=== PATIENT | female | born 1950 | race Hispanic/Latino ===

== ENCOUNTER 2021-04-06 16:51 | Emergency (ER) | payer MEDICARE ==
[~2021-04-06] VITALS: Ht 167.6 cm; Wt 66.7 kg
[2021-04-06 18:00] LABS: CLARITY,URINE SL CLOUDY (CLEAR); COLOR,URINE AMBER (YELLOW); KETONES,URINE 1+ (NEGATIVE); LEUKOCYTE ESTERASE ,URINE NEGATIVE (NEGATIVE); NITRITE,URINE NEGATIVE (NEGATIVE); PROTEIN,URINE DIPSTICK 1+ (NEGATIVE); URINE UROBILINOGEN 4 mg/dL (0.2 - 1)
[2021-04-06] MEDS ORDERED: ACETAMINOPHEN 325 MG TAB PO ONE (18:00)
[2021-04-06 18:12] LABS: BACTERIA,URINE MODERATE /HPF; EPITHELIAL CELLS,URINE MODERATE /LPF
[2021-04-06 18:13] LABS: AMORPHOUS SEDIMENT,URINE MODERATE (FEW)
[2021-04-06] MEDS ORDERED: SODIUM CHLORIDE 0.9% 1000ML 1,000 ML IV ONE (18:15)
[2021-04-06 18:19] LABS: BASOPHILS % 0.4 % (0.0-1.0); HEMATOCRIT 39.6 % (34.2-44.1); HEMOGLOBIN 13.4 g/dL (12.0-16.0); LYMPHOCYTES # (AUTO) 0.6 (1.0-3.2); LYMPHOCYTES % 21.9 % (18.0-39.1); MEAN CORPUSCULAR HEMOGLOBIN 30.2 pg (28-32); MEAN CORPUSCULAR HGB CONC 33.8 g/dL (31-35); MEAN CORPUSCULAR VOLUME 89.2 fL (81-99); MONOCYTES # (AUTO) 0.3 (0.2-0.8); MONOCYTES % 11.5 % (4.4-11.3); NEUTROPHILS # (AUTO) 1.8 (2.1-6.9); NEUTROPHILS % 65.8 % (38.7-80.0); PLATELET COUNT 115 x10e3/uL (140-360); RED BLOOD COUNT 4.44 x10e6/uL (3.6-5.1); RED CELL DISTRIBUTION WIDTH 11.6 % (11.7-14.4)
[2021-04-06] MEDS ORDERED: SODIUM CHLORIDE 0.9% 1000ML 1,000 ML ONE (18:20)
[2021-04-06 18:39] LABS: ALBUMIN 4.1 g/dL (3.5-5.0); ANION GAP 15.7 mmol/L (8-16); CALCIUM 9.6 mg/dL (8.4-10.2); CREATININE, SERUM 0.88 mg/dL (0.57-1.11); POTASSIUM 3.7 mmol/L (3.5-5.1)
[2021-04-06] MEDS ORDERED: IBUPROFEN 600 MG TAB PO STA (19:09)
[2021-04-06] MEDS ORDERED: CEFTRIAXONE 1 GM in SODIUM CHLORIDE 0.9% 50ML 50 ML IV ONE (19:15)
[2021-04-06 20:27] LABS: LYMPHOCYTES % (MANUAL) 17 % (19-48); MONOCYTES % (MANUAL) 10 % (3.4-9.0); NEUTROPHILS % (MANUAL) 68 % (40-74); PLATELET ESTIMATE SLIGHTLY DECREASED; PLATELET MORPHOLOGY COMMENT NORMAL; RBC MORPHOLOGY COMMENT NORMAL
[2021-04-06] MEDS ORDERED: SODIUM CHLORIDE 0.9% 50ML 50 ML ONE (20:44)
[2021-04-06] MEDS ORDERED: IOPAMIDOL 370 MG/ML 200 ML INFUS..BTL INJ ONE (20:44)
== END 2021-04-06 23:00 | disposition home or self-care (01) ==
LOC: ER 19:30
DX: R50.9 Fever, unspecified (principal); R10.32 Left lower quadrant pain; N39.0 Urinary tract infection, site not specified; R91.1 Solitary pulmonary nodule
CPT/HCPCS: 36415; 71045; 74177; 80053; 81001; 83605; 85025; 87040; 87086; 99284; J0696; J7030; Q9967

== ENCOUNTER 2021-04-11 21:40 | Inpatient (IN) | payer MEDICARE ==
[~2021-04-11] VITALS: Ht 167.6 cm; Wt 68.5 kg
[2021-04-11] MEDS ORDERED: SODIUM CHLORIDE 0.9% 1000ML 1,000 ML IV STA ×2 (22:38)
[2021-04-11] MEDS ORDERED: CEFEPIME 1 GM in SODIUM CHLORIDE 0.9% 50ML 50 ML IV ONE (22:45)
[2021-04-11] MEDS ORDERED: SODIUM CHLORIDE 0.9% 1000ML 2,000 ML ONE (22:52)
[2021-04-11 23:08] LABS: BASOPHILS % 0.5 % (0.0-1.0); EOSINOPHILS % 0.1 % (0.0-6.0); HEMATOCRIT 35.1 % (34.2-44.1); HEMOGLOBIN 12.1 g/dL (12.0-16.0); LYMPHOCYTES # (AUTO) 0.6 (1.0-3.2); LYMPHOCYTES % 7.6 % (18.0-39.1); MEAN CORPUSCULAR HEMOGLOBIN 30.2 pg (28-32); MEAN CORPUSCULAR HGB CONC 34.5 g/dL (31-35); MEAN CORPUSCULAR VOLUME 87.5 fL (81-99); MONOCYTES # (AUTO) 0.3 (0.2-0.8); MONOCYTES % 3.3 % (4.4-11.3); NEUTROPHILS # (AUTO) 6.6 (2.1-6.9); NEUTROPHILS % 87.6 % (38.7-80.0); RED BLOOD COUNT 4.01 x10e6/uL (3.6-5.1); RED CELL DISTRIBUTION WIDTH 12.4 % (11.7-14.4)
[2021-04-11 23:19] LABS: PLATELET COUNT 45 x10e3/uL (140-360)
[2021-04-11 23:21] LABS: ALBUMIN 2.7 g/dL (3.5-5.0); ALBUMIN/GLOBULIN RATIO 0.7 (0.8-2.0); ANION GAP 19.7 mmol/L (8-16); CALCIUM 8.3 mg/dL (8.4-10.2); CREATININE, SERUM 1.98 mg/dL (0.57-1.11); POTASSIUM 3.7 mmol/L (3.5-5.1)
[2021-04-12] VITALS (17 sets, daily range): BP systolic 87–105; BP diastolic 37–63
[2021-04-12 01:08] LABS: CLARITY,URINE CLOUDY (CLEAR); COLOR,URINE ORANGE (YELLOW); KETONES,URINE NEGATIVE (NEGATIVE); LEUKOCYTE ESTERASE ,URINE NEGATIVE (NEGATIVE); NITRITE,URINE NEGATIVE (NEGATIVE); PROTEIN,URINE DIPSTICK 1+ (NEGATIVE); URINE UROBILINOGEN 0.2 mg/dL (0.2 - 1)
[2021-04-12 01:09] LABS: CREATINE KINASE MB 1.8 ng/mL (0-5.0)
[2021-04-12 01:16] LABS: BACTERIA,URINE MANY /HPF; EPITHELIAL CELLS,URINE FEW /LPF; WBC,URINE (MAN) 21-50 /HPF (0-5)
[2021-04-12 01:17] LABS: AMORPHOUS SEDIMENT,URINE MODERATE (FEW); MUCUS,URINE FEW (RARE)
[2021-04-12] MEDS: SODIUM CHLORIDE 0.9% 1000ML 1,000 ML IV SCH ×3 (02:15→12:03)
[2021-04-12] MEDS ORDERED: NOREPINEPHRINE 8 MG/D5W 250 ML 250 ML ONE (02:23)
[2021-04-12] MEDS: NOREPINEPHRINE 8 MG/D5W 250 ML 250 ML IV SCH (02:30)
[2021-04-12] MEDS ORDERED: ONDANSETRON HCL INJ 2MG/ML 2ML 2 MG/ML VIAL IV STA (03:20)
[2021-04-12] MEDS ORDERED: MORPHINE SULFATE INJ 2 MG/ML SYR IV STA (03:20)
[2021-04-12] MEDS ORDERED: FENTANYL CITRATE/PF 100MCG/2 ML INJ ONE (04:13)
[2021-04-12] MEDS ORDERED: FENTANYL CITRATE/PF 100MCG/2 ML INJ IV ONE (04:15)
[2021-04-12] MEDS ORDERED: PIPERACILLIN/TAZOBACTAM 3.375 GM in SODIUM CHLORIDE 0.9% 50ML 50 ML IV SCH (06:00)
[2021-04-12] MEDS ORDERED: LIDOCAINE 4% PATCH TP PRN (07:00)
[2021-04-12] MEDS ORDERED: DOCUSATE SODIUM 100 MG CAP PO PRN (07:00)
[2021-04-12] MEDS ORDERED: POTASSIUM CHLORIDE 20 MEQ TAB CR PO PRN (07:00)
[2021-04-12] MEDS ORDERED: ALBUTEROL/IPRATROPIUM 3 ML NEB NEB PRN (07:00)
[2021-04-12] MEDS ORDERED: DIPHENHYDRAMINE HCL 25 MG CAP PO PRN (07:00)
[2021-04-12] MEDS ORDERED: ONDANSETRON HCL INJ 2MG/ML 2ML 2 MG/ML VIAL IV PRN (07:00)
[2021-04-12] MEDS ORDERED: DEXTROSE 50% SYRINGE 50 ML IV PRN (07:00)
[2021-04-12] MEDS: MEROPENEM 500 MG in SODIUM CHLORIDE 0.9% 50ML 50 ML IV SCH ×3 (07:29→19:48)
[2021-04-12] MEDS: PANTOPRAZOLE SOD 40 MG TABEC PO SCH (07:29)
[2021-04-12] MEDS ORDERED: SODIUM CHLORIDE 0.9% 1000ML 1,000 ML IV SCH ×2 (09:45→10:45)
[2021-04-12 09:52] LABS: CREATINE KINASE MB 2.1 ng/mL (0-5.0)
[2021-04-12 10:36] LABS: ANION GAP 13.2 mmol/L (8-16); CALCIUM 7.1 mg/dL (8.4-10.2); CREATININE, SERUM 1.36 mg/dL (0.57-1.11); POTASSIUM 3.2 mmol/L (3.5-5.1)
[2021-04-12] MEDS: SODIUM BICARBONATE 650 MG TAB PO SCH ×2 (11:32→16:08)
[2021-04-12] MEDS ORDERED: POTASSIUM CHLORIDE 20MEQ/100ML 200 ML IV ONE (12:30)
[2021-04-12] MEDS: SODIUM BICARBONATE 8.4% SYRING 150 ML in DEXTROSE 5% 1,000 ML IV SCH (13:17)
[2021-04-12 13:34] LABS: INR 0.98; PROTHROMBIN TIME 13.6 seconds (11.9-14.5)
[2021-04-12 13:35] LABS: PARTIAL THROMBOPLASTIN TIME 45.1 seconds (23.8-35.5)
[2021-04-12 13:36] LABS: BACTERIA,URINE RARE /HPF; CLARITY,URINE CLEAR (CLEAR); COLOR,URINE YELLOW (YELLOW); KETONES,URINE NEGATIVE (NEGATIVE); LEUKOCYTE ESTERASE ,URINE NEGATIVE (NEGATIVE); MUCUS,URINE FEW (RARE); NITRITE,URINE NEGATIVE (NEGATIVE); PROTEIN,URINE DIPSTICK TRACE (NEGATIVE); RBC,URINE 0-5 /HPF (0-5); URINE UROBILINOGEN 0.2 mg/dL (0.2 - 1); WBC,URINE (MAN) 0-5 /HPF (0-5)
[2021-04-12 16:35] LABS: CREATINE KINASE MB 1.3 ng/mL (0-5.0)
[2021-04-12] MEDS ORDERED: ENOXAPARIN SOD INJ 40 MG/0.4 ML SYR SC SCH (17:00)
[2021-04-12] MEDS: ACETAMINOPHEN 325 MG TAB PO PRN (19:27)
[2021-04-12 21:24] LABS: CREATINE KINASE MB 0.7 ng/mL (0-5.0)
[2021-04-13] VITALS (24 sets, daily range): BP systolic 52–161; BP diastolic 35–71
[2021-04-13] MEDS: MEROPENEM 500 MG in SODIUM CHLORIDE 0.9% 50ML 50 ML IV SCH ×4 (02:13→20:14)
[2021-04-13] MEDS: NOREPINEPHRINE 8 MG/D5W 250 ML 250 ML IV SCH ×2 (02:55→23:00)
[2021-04-13] MEDS: SODIUM BICARBONATE 8.4% SYRING 150 ML in DEXTROSE 5% 1,000 ML IV SCH ×2 (02:56→23:39)
[2021-04-13 06:31] LABS: BASOPHILS % 0.3 % (0.0-1.0); EOSINOPHILS % 0.2 % (0.0-6.0); HEMATOCRIT 29.6 % (34.2-44.1); HEMOGLOBIN 10.1 g/dL (12.0-16.0); LYMPHOCYTES % 10.3 % (18.0-39.1); MEAN CORPUSCULAR HEMOGLOBIN 29.8 pg (28-32); MEAN CORPUSCULAR HGB CONC 34.1 g/dL (31-35); MEAN CORPUSCULAR VOLUME 87.3 fL (81-99); MONOCYTES # (AUTO) 0.3 (0.2-0.8); MONOCYTES % 2.7 % (4.4-11.3); NEUTROPHILS # (AUTO) 8.6 (2.1-6.9); NEUTROPHILS % 84.7 % (38.7-80.0); RED BLOOD COUNT 3.39 x10e6/uL (3.6-5.1); RED CELL DISTRIBUTION WIDTH 12.7 % (11.7-14.4)
[2021-04-13 06:42] LABS: PLATELET COUNT 40 x10e3/uL (140-360)
[2021-04-13 07:01] LABS: ALBUMIN 1.7 g/dL (3.5-5.0); ALBUMIN/GLOBULIN RATIO 0.7 (0.8-2.0); ANION GAP 11.4 mmol/L (8-16); CREATININE, SERUM 0.95 mg/dL (0.57-1.11); POTASSIUM 3.4 mmol/L (3.5-5.1)
[2021-04-13 07:02] LABS: CALCIUM 6.8 mg/dL (8.4-10.2)
[2021-04-13 07:30] LABS: BAND NEUTROPHILS % (MANUAL) 4 %; LYMPHOCYTES % (MANUAL) 7 % (19-48); MONOCYTES % (MANUAL) 2 % (3.4-9.0); NEUTROPHILS % (MANUAL) 87 % (40-74); PLATELET ESTIMATE MARKEDLY DECREASED; PLATELET MORPHOLOGY COMMENT NORMAL
[2021-04-13 07:31] LABS: RBC MORPHOLOGY COMMENT NORMAL
[2021-04-13] MEDS: ACETAMINOPHEN 1000 MG/100 ML IV PRN ×2 (07:56→22:58)
[2021-04-13] MEDS: PANTOPRAZOLE SOD 40 MG TABEC PO SCH (07:59)
[2021-04-13] MEDS: SODIUM BICARBONATE 650 MG TAB PO SCH (08:03)
[2021-04-13] MEDS ORDERED: IBUPROFEN 600 MG TAB PO PRN (09:15)
[2021-04-13] MEDS ORDERED: POTASSIUM CHLORIDE 20MEQ/100ML 200 ML IV ONE (09:30)
[2021-04-13] MEDS: Vancomycin IV 1 GM in SODIUM CHLORIDE 0.9% 250ML 250 ML IV SCH ×2 (09:54→21:45)
[2021-04-13] MEDS ORDERED: FUROSEMIDE INJ 10 MG/ML 4 ML VIAL IV ONE (10:00)
[2021-04-13] MEDS ORDERED: CALCIUM GLUCONATE 10% INJ 9.3 MEQ in SODIUM CHLORIDE 0.9% 100 ML 100 ML IV ONE (11:00)
[2021-04-13] MEDS: IBUPROFEN 600 MG TAB PO PRN (15:44)
[2021-04-13] MEDS ORDERED: SODIUM CHLORIDE 0.9% 50ML 50 ML ONE (17:30)
[2021-04-13] MEDS ORDERED: IOPAMIDOL 370 MG/ML 200 ML INFUS..BTL INJ ONE (17:30)
[2021-04-13 20:18] LABS: BASOPHILS % 0.5 % (0.0-1.0); EOSINOPHILS % 0.3 % (0.0-6.0); HEMATOCRIT 32.4 % (34.2-44.1); LYMPHOCYTES # (AUTO) 0.9 (1.0-3.2); LYMPHOCYTES % 11.8 % (18.0-39.1); MEAN CORPUSCULAR HEMOGLOBIN 29.7 pg (28-32); MEAN CORPUSCULAR VOLUME 87.6 fL (81-99); MONOCYTES # (AUTO) 0.2 (0.2-0.8); MONOCYTES % 2.6 % (4.4-11.3); NEUTROPHILS # (AUTO) 6.4 (2.1-6.9); NEUTROPHILS % 83.4 % (38.7-80.0); RED CELL DISTRIBUTION WIDTH 12.9 % (11.7-14.4)
[2021-04-13 20:23] LABS: PLATELET COUNT 35 x10e3/uL (140-360)
[2021-04-13 20:42] LABS: ALBUMIN 1.7 g/dL (3.5-5.0); ALBUMIN/GLOBULIN RATIO 0.7 (0.8-2.0); ANION GAP 15.3 mmol/L (8-16); CALCIUM 7.3 mg/dL (8.4-10.2); CREATININE, SERUM 0.95 mg/dL (0.57-1.11); POTASSIUM 3.3 mmol/L (3.5-5.1)
[2021-04-13] MEDS ORDERED: SODIUM CHLORIDE 0.9% 500ML 500 ML IV ONE (22:15)
[2021-04-13] MEDS: VASOPRESSIN 60 UNIT in DEXTROSE 5% 50ML 57 ML IV PRN (23:05)
[2021-04-13] MEDS ORDERED: DEXTROSE 5% 100ML 100 ML IV ONE (23:09)
[2021-04-13] MEDS ORDERED: VASOPRESSIN INJ 20 UNIT/ML VIAL ONE (23:09)
[2021-04-13] MEDS: PHENYLEPHRINE 10MG/ML VIAL 40 MG in DEXTROSE 5% 250ML 246 ML IV PRN (23:55)
[2021-04-13] MEDS ORDERED: DEXTROSE 5% 250ML 250 ML IV ONE (23:56)
[2021-04-13] MEDS ORDERED: PHENYLEPHRINE HCL 1% 10 MG/ML VIAL ONE (23:58)
[2021-04-14] VITALS (26 sets, daily range): BP systolic 89–143; BP diastolic 55–98
[2021-04-14] MEDS: MEROPENEM 500 MG in SODIUM CHLORIDE 0.9% 50ML 50 ML IV SCH ×4 (02:05→20:05)
[2021-04-14] MEDS: NOREPINEPHRINE 8 MG/D5W 250 ML 250 ML IV SCH (02:30)
[2021-04-14] MEDS ORDERED: NITROFURANTOIN100 M1 PO (02:51)
[2021-04-14] MEDS ORDERED: ESCITALOPRAM OX10 MG PO (02:51)
[2021-04-14] MEDS ORDERED: TRAZODONE HCL50 MG PO (02:51)
[2021-04-14] MEDS ORDERED: HYDROXYZINE HCL10 MG PO ×2 (02:51→02:55)
[2021-04-14] MEDS ORDERED: DOXEPIN HCL10 MG PO (02:51)
[2021-04-14 05:07] LABS: BASOPHILS # (AUTO) 0.1 (0.0-0.1); BASOPHILS % 0.8 % (0.0-1.0); EOSINOPHILS % 0.2 % (0.0-6.0); HEMATOCRIT 34.3 % (34.2-44.1); HEMOGLOBIN 11.2 g/dL (12.0-16.0); LYMPHOCYTES # (AUTO) 1.4 (1.0-3.2); LYMPHOCYTES % 14.7 % (18.0-39.1); MEAN CORPUSCULAR HEMOGLOBIN 30.1 pg (28-32); MEAN CORPUSCULAR HGB CONC 32.7 g/dL (31-35); MEAN CORPUSCULAR VOLUME 92.2 fL (81-99); MONOCYTES # (AUTO) 0.4 (0.2-0.8); MONOCYTES % 3.9 % (4.4-11.3); NEUTROPHILS # (AUTO) 7.5 (2.1-6.9); NEUTROPHILS % 78.6 % (38.7-80.0); RED BLOOD COUNT 3.72 x10e6/uL (3.6-5.1); RED CELL DISTRIBUTION WIDTH 13.2 % (11.7-14.4)
[2021-04-14 05:19] LABS: PLATELET COUNT 41 x10e3/uL (140-360)
[2021-04-14 05:33] LABS: ALBUMIN 1.8 g/dL (3.5-5.0); ALBUMIN/GLOBULIN RATIO 0.6 (0.8-2.0); ANION GAP 15.1 mmol/L (8-16); CALCIUM 7.4 mg/dL (8.4-10.2); CREATININE, SERUM 0.78 mg/dL (0.57-1.11); POTASSIUM 4.1 mmol/L (3.5-5.1)
[2021-04-14] MEDS: PANTOPRAZOLE SOD 40 MG TABEC PO SCH (08:54)
[2021-04-14] MEDS: PHENYLEPHRINE 10MG/ML VIAL 40 MG in DEXTROSE 5% 250ML 246 ML IV PRN ×2 (09:05→17:22)
[2021-04-14] MEDS ORDERED: DIGOXIN INJ 0.25 MG/ML 2 ML AMP IV SCH (09:15)
[2021-04-14] MEDS: DIGOXIN INJ 0.25 MG/ML 2 ML AMP IV SCH ×2 (09:33→14:29)
[2021-04-14] MEDS: Vancomycin IV 1 GM in SODIUM CHLORIDE 0.9% 250ML 250 ML IV SCH (10:09)
[2021-04-14] MEDS: VASOPRESSIN 60 UNIT in DEXTROSE 5% 50ML 57 ML IV PRN ×2 (10:48→23:08)
[2021-04-14 11:55] LABS: OCCULT BLOOD STOOL NEGATIVE (NEGATIVE)
[2021-04-14 13:13] LABS: C DIFFICILE TOXIN A&B AMP PROB NEGATIVE (NEGATIVE)
[2021-04-14] MEDS ORDERED: DIGOXIN INJ 0.25 MG/ML 2 ML AMP ONE (14:33)
[2021-04-14] MEDS: VANCOMYCIN HCL 125 MG CAPSULE PO SCH (17:58)
[2021-04-14] MEDS: POTASSIUM CHLORIDE 20MEQ/100ML 100 ML IV SCH (22:12)
[2021-04-14] MEDS: SODIUM BICARBONATE 8.4% SYRING 150 ML in DEXTROSE 5% 1,000 ML IV SCH (22:27)
[2021-04-15] VITALS (26 sets, daily range): BP systolic 101–140; BP diastolic 56–92
[2021-04-15] MEDS: VANCOMYCIN HCL 125 MG CAPSULE PO SCH ×3 (00:30→12:17)
[2021-04-15] MEDS: POTASSIUM CHLORIDE 20MEQ/100ML 100 ML IV SCH (00:30)
[2021-04-15] MEDS: IBUPROFEN 600 MG TAB PO PRN (01:05)
[2021-04-15] MEDS: MEROPENEM 500 MG in SODIUM CHLORIDE 0.9% 50ML 50 ML IV SCH ×4 (02:10→19:59)
[2021-04-15] MEDS: PHENYLEPHRINE 10MG/ML VIAL 40 MG in DEXTROSE 5% 250ML 246 ML IV PRN ×2 (03:00→15:45)
[2021-04-15] MEDS: PANTOPRAZOLE SOD 40 MG TABEC PO SCH (08:45)
[2021-04-15] MEDS: ESCITALOPRAM OXALATE 10 MG TAB PO SCH (08:45)
[2021-04-15 14:13] LABS: BASOPHILS # (AUTO) 0.1 (0.0-0.1); BASOPHILS % 0.6 % (0.0-1.0); EOSINOPHILS % 0.2 % (0.0-6.0); HEMATOCRIT 30.2 % (34.2-44.1); HEMOGLOBIN 9.9 g/dL (12.0-16.0); LYMPHOCYTES # (AUTO) 3.2 (1.0-3.2); MEAN CORPUSCULAR HEMOGLOBIN 29.7 pg (28-32); MEAN CORPUSCULAR HGB CONC 32.8 g/dL (31-35); MEAN CORPUSCULAR VOLUME 90.7 fL (81-99); MONOCYTES # (AUTO) 0.6 (0.2-0.8); MONOCYTES % 4.9 % (4.4-11.3); NEUTROPHILS # (AUTO) 7.8 (2.1-6.9); NEUTROPHILS % 65.4 % (38.7-80.0); PLATELET COUNT 72 x10e3/uL (140-360); RED BLOOD COUNT 3.33 x10e6/uL (3.6-5.1); RED CELL DISTRIBUTION WIDTH 12.9 % (11.7-14.4)
[2021-04-15] MEDS: HYDROCORTISONE SOD SUCCINATE 100 MG VIAL IV SCH ×2 (14:13→22:17)
[2021-04-15] MEDS: VASOPRESSIN 60 UNIT in DEXTROSE 5% 50ML 57 ML IV PRN (14:35)
[2021-04-15 14:41] LABS: ANION GAP 13.5 mmol/L (8-16); CREATININE, SERUM 0.62 mg/dL (0.57-1.11); POTASSIUM 3.5 mmol/L (3.5-5.1)
[2021-04-15 14:59] LABS: CALCIUM 6.9 mg/dL (8.4-10.2)
[2021-04-15] MEDS ORDERED: TRAZODONE HCL 50 MG TAB PO PRN (15:45)
[2021-04-15 16:09] LABS: BAND NEUTROPHILS % (MANUAL) 7 %; LYMPHOCYTES % (MANUAL) 25 % (19-48); MONOCYTES % (MANUAL) 4 % (3.4-9.0); MYELOCYTES % (MANUAL) 1 % (0-0); NEUTROPHILS % (MANUAL) 62 % (40-74); RBC MORPHOLOGY COMMENT NORMAL
[2021-04-15 16:10] LABS: PLATELET ESTIMATE SLIGHTLY DECREASED; PLATELET MORPHOLOGY COMMENT NORMAL
[2021-04-15 21:33] LABS: ALBUMIN 1.8 g/dL (3.5-5.0); ALBUMIN/GLOBULIN RATIO 0.6 (0.8-2.0); ANION GAP 11.3 mmol/L (8-16); CREATININE, SERUM 0.68 mg/dL (0.57-1.11); POTASSIUM 3.3 mmol/L (3.5-5.1)
[2021-04-15 21:50] LABS: CALCIUM 6.9 mg/dL (8.4-10.2)
[2021-04-15] MEDS: SODIUM BICARBONATE 8.4% SYRING 150 ML in DEXTROSE 5% 1,000 ML IV SCH (22:00)
[2021-04-15] MEDS ORDERED: POTASSIUM CHLORIDE 20MEQ/100ML 100 ML IV ONE (22:45)
[2021-04-16] VITALS (26 sets, daily range): BP systolic 91–135; BP diastolic 54–85
[2021-04-16] MEDS: MEROPENEM 500 MG in SODIUM CHLORIDE 0.9% 50ML 50 ML IV SCH ×4 (02:01→20:17)
[2021-04-16] MEDS: VASOPRESSIN 60 UNIT in DEXTROSE 5% 50ML 57 ML IV PRN ×3 (02:53→17:20)
[2021-04-16] MEDS: HYDROCORTISONE SOD SUCCINATE 100 MG VIAL IV SCH (05:55)
[2021-04-16 06:08] LABS: BASOPHILS % 0.3 % (0.0-1.0); HEMATOCRIT 25.8 % (34.2-44.1); HEMOGLOBIN 8.6 g/dL (12.0-16.0); LYMPHOCYTES # (AUTO) 3.1 (1.0-3.2); LYMPHOCYTES % 31.6 % (18.0-39.1); MEAN CORPUSCULAR HGB CONC 33.3 g/dL (31-35); MEAN CORPUSCULAR VOLUME 89.9 fL (81-99); MONOCYTES # (AUTO) 0.5 (0.2-0.8); MONOCYTES % 5.3 % (4.4-11.3); NEUTROPHILS # (AUTO) 5.8 (2.1-6.9); NEUTROPHILS % 59.6 % (38.7-80.0); PLATELET COUNT 86 x10e3/uL (140-360); RED BLOOD COUNT 2.87 x10e6/uL (3.6-5.1); RED CELL DISTRIBUTION WIDTH 12.8 % (11.7-14.4)
[2021-04-16] MEDS: PANTOPRAZOLE SOD 40 MG TABEC PO SCH (07:36)
[2021-04-16 08:07] LABS: ALBUMIN 1.9 g/dL (3.5-5.0); ALBUMIN/GLOBULIN RATIO 0.6 (0.8-2.0); ANION GAP 12.2 mmol/L (8-16); CREATININE, SERUM 0.65 mg/dL (0.57-1.11); POTASSIUM 3.2 mmol/L (3.5-5.1)
[2021-04-16] MEDS: ESCITALOPRAM OXALATE 10 MG TAB PO SCH (08:39)
[2021-04-16] MEDS ORDERED: POTASSIUM CHLORIDE 20MEQ/100ML 100 ML IV PRN (09:45)
[2021-04-16] MEDS ORDERED: DEXTROSE 50% SYRINGE 50 ML IV PRN (10:00)
[2021-04-16] MEDS: INSULIN LISPRO 100 UNIT/1 ML 3ML VIAL SQ SCH ×2 (12:42→16:36)
[2021-04-16] MEDS ORDERED: HYDROCORTISONE SOD SUCCINATE 100 MG VIAL IV SCH (21:00)
[2021-04-16] MEDS: SODIUM BICARBONATE 8.4% SYRING 150 ML in DEXTROSE 5% 1,000 ML IV SCH (21:29)
[2021-04-17] VITALS (25 sets, daily range): BP systolic 98–124; BP diastolic 51–77
[2021-04-17] MEDS: MEROPENEM 500 MG in SODIUM CHLORIDE 0.9% 50ML 50 ML IV SCH ×4 (02:34→20:02)
[2021-04-17 06:07] LABS: BASOPHILS % 0.2 % (0.0-1.0); HEMATOCRIT 23.5 % (34.2-44.1); HEMOGLOBIN 7.9 g/dL (12.0-16.0); LYMPHOCYTES % 33.7 % (18.0-39.1); MEAN CORPUSCULAR HEMOGLOBIN 30.3 pg (28-32); MEAN CORPUSCULAR HGB CONC 33.6 g/dL (31-35); MONOCYTES # (AUTO) 0.3 (0.2-0.8); MONOCYTES % 5.8 % (4.4-11.3); NEUTROPHILS # (AUTO) 3.4 (2.1-6.9); NEUTROPHILS % 57.4 % (38.7-80.0); PLATELET COUNT 88 x10e3/uL (140-360); RED BLOOD COUNT 2.61 x10e6/uL (3.6-5.1); RED CELL DISTRIBUTION WIDTH 12.7 % (11.7-14.4); RETICULOCYTE % 1.3 % (0.8-2.2)
[2021-04-17 06:33] LABS: ALBUMIN 1.9 g/dL (3.5-5.0); ALBUMIN/GLOBULIN RATIO 0.6 (0.8-2.0); ANION GAP 12.7 mmol/L (8-16); CREATININE, SERUM 0.61 mg/dL (0.57-1.11)
[2021-04-17 06:37] LABS: POTASSIUM 2.7 mmol/L (3.5-5.1)
[2021-04-17 06:49] LABS: HYPOCHROMASIA SLIG; LYMPHOCYTES % (MANUAL) 27 % (19-48); MONOCYTES % (MANUAL) 12 % (3.4-9.0); NEUTROPHILS % (MANUAL) 61 % (40-74); PLATELET ESTIMATE MODERATELY DECREASED; POLYCHROMASIA FEW; RBC MORPHOLOGY COMMENT NORMAL
[2021-04-17 07:01] LABS: INR 1.04; PROTHROMBIN TIME 14.2 seconds (11.9-14.5)
[2021-04-17 07:04] LABS: FERRITIN 1095.2 ng/mL (4.63-204.00)
[2021-04-17] MEDS ORDERED: POTASSIUM CHLORIDE 20 MEQ TAB CR PO STA (09:18)
[2021-04-17] MEDS: ESCITALOPRAM OXALATE 10 MG TAB PO SCH (09:41)
[2021-04-17] MEDS: PANTOPRAZOLE SOD 40 MG TABEC PO SCH (09:41)
[2021-04-17 09:43] LABS: MAGNESIUM 1.8 MG/DL (1.3-2.1); PHOSPHORUS 2.7 MG/DL (2.3-4.7)
[2021-04-17] MEDS ORDERED: POTASSIUM CHLORIDE 20MEQ/100ML 200 ML IV ONE (09:45)
[2021-04-17] MEDS ORDERED: POTASSIUM CHLORIDE 10MEQ/100ML 300 ML IV ONE ×2 (10:00→18:45)
[2021-04-17] MEDS: INSULIN LISPRO 100 UNIT/1 ML 3ML VIAL SQ SCH ×3 (10:17→16:30)
[2021-04-17 11:17] LABS: AMYLASE 85 U/L (25-125); LIPASE 78 U/L (8-78)
[2021-04-17] MEDS ORDERED: VASOPRESSIN INJ 20 UNIT/ML VIAL ONE (16:51)
[2021-04-17] MEDS ORDERED: POTASSIUM CHLORIDE 20 MEQ TAB CR PO ONE (18:45)
[2021-04-18] VITALS (25 sets, daily range): BP systolic 87–122; BP diastolic 49–79
[2021-04-18] MEDS: MEROPENEM 500 MG in SODIUM CHLORIDE 0.9% 50ML 50 ML IV SCH ×4 (02:26→19:38)
[2021-04-18 05:52] LABS: BASOPHILS % 0.2 % (0.0-1.0); EOSINOPHILS % 0.2 % (0.0-6.0); HEMATOCRIT 23.5 % (34.2-44.1); HEMOGLOBIN 7.8 g/dL (12.0-16.0); LYMPHOCYTES # (AUTO) 2.1 (1.0-3.2); LYMPHOCYTES % 32.4 % (18.0-39.1); MEAN CORPUSCULAR HEMOGLOBIN 30.2 pg (28-32); MEAN CORPUSCULAR HGB CONC 33.2 g/dL (31-35); MEAN CORPUSCULAR VOLUME 91.1 fL (81-99); MONOCYTES # (AUTO) 0.8 (0.2-0.8); MONOCYTES % 13.2 % (4.4-11.3); NEUTROPHILS # (AUTO) 3.1 (2.1-6.9); NEUTROPHILS % 49.1 % (38.7-80.0); PLATELET COUNT 108 x10e3/uL (140-360); RED BLOOD COUNT 2.58 x10e6/uL (3.6-5.1); RED CELL DISTRIBUTION WIDTH 12.4 % (11.7-14.4)
[2021-04-18 06:02] LABS: INR 1.05; PROTHROMBIN TIME 14.3 seconds (11.9-14.5)
[2021-04-18 06:09] LABS: ALBUMIN/GLOBULIN RATIO 0.6 (0.8-2.0); ANION GAP 11.9 mmol/L (8-16); CALCIUM 7.3 mg/dL (8.4-10.2); CREATININE, SERUM 0.54 mg/dL (0.57-1.11)
[2021-04-18 06:11] LABS: POTASSIUM 2.9 mmol/L (3.5-5.1)
[2021-04-18] MEDS ORDERED: POTASSIUM CHLORIDE 20MEQ/100ML 200 ML IV ONE ×2 (07:00→13:30)
[2021-04-18 07:04] LABS: LYMPHOCYTES % (MANUAL) 15 % (19-48); MONOCYTES % (MANUAL) 11 % (3.4-9.0); MYELOCYTES % (MANUAL) 6 % (0-0); NEUTROPHILS % (MANUAL) 68 % (40-74); PLATELET ESTIMATE SLIGHTLY DECREASED; PLATELET MORPHOLOGY COMMENT NORMAL; RBC MORPHOLOGY COMMENT NORMAL
[2021-04-18] MEDS: PANTOPRAZOLE SOD 40 MG TABEC PO SCH (08:17)
[2021-04-18] MEDS: INSULIN LISPRO 100 UNIT/1 ML 3ML VIAL SQ SCH ×3 (08:18→16:30)
[2021-04-18] MEDS: MULTIVITAMINS/MINERALS TAB PO SCH (08:18)
[2021-04-18] MEDS: ESCITALOPRAM OXALATE 10 MG TAB PO SCH (08:21)
[2021-04-18] MEDS ORDERED: POTASSIUM CHLORIDE 20 MEQ TAB CR PO ONE (09:00)
[2021-04-18 16:39] LABS: ALBUMIN/GLOBULIN RATIO 0.6 (0.8-2.0); ANION GAP 11.9 mmol/L (8-16); CALCIUM 7.4 mg/dL (8.4-10.2); CREATININE, SERUM 0.55 mg/dL (0.57-1.11); MAGNESIUM 1.8 MG/DL (1.3-2.1); POTASSIUM 3.9 mmol/L (3.5-5.1)
[2021-04-19] VITALS (20 sets, daily range): BP systolic 98–124; BP diastolic 49–81
[2021-04-19] MEDS: MEROPENEM 500 MG in SODIUM CHLORIDE 0.9% 50ML 50 ML IV SCH ×4 (02:28→19:59)
[2021-04-19 07:18] LABS: BASOPHILS % 0.2 % (0.0-1.0); EOSINOPHILS % 0.3 % (0.0-6.0); HEMATOCRIT 29.3 % (34.2-44.1); HEMOGLOBIN 9.5 g/dL (12.0-16.0); LYMPHOCYTES # (AUTO) 1.7 (1.0-3.2); LYMPHOCYTES % 27.1 % (18.0-39.1); MEAN CORPUSCULAR HEMOGLOBIN 30.1 pg (28-32); MEAN CORPUSCULAR HGB CONC 32.4 g/dL (31-35); MEAN CORPUSCULAR VOLUME 92.7 fL (81-99); MONOCYTES # (AUTO) 0.6 (0.2-0.8); MONOCYTES % 10.2 % (4.4-11.3); NEUTROPHILS # (AUTO) 3.6 (2.1-6.9); PLATELET COUNT 184 x10e3/uL (140-360); RED BLOOD COUNT 3.16 x10e6/uL (3.6-5.1); RED CELL DISTRIBUTION WIDTH 12.7 % (11.7-14.4)
[2021-04-19] MEDS: PANTOPRAZOLE SOD 40 MG TABEC PO SCH ×2 (07:30→08:05)
[2021-04-19] MEDS: INSULIN LISPRO 100 UNIT/1 ML 3ML VIAL SQ SCH ×3 (07:30→16:30)
[2021-04-19 07:36] LABS: ANION GAP 11.5 mmol/L (8-16); CALCIUM 7.6 mg/dL (8.4-10.2); CREATININE, SERUM 0.56 mg/dL (0.57-1.11); POTASSIUM 3.5 mmol/L (3.5-5.1)
[2021-04-19] MEDS: ESCITALOPRAM OXALATE 10 MG TAB PO SCH (08:05)
[2021-04-19] MEDS: MULTIVITAMINS/MINERALS TAB PO SCH (08:05)
[2021-04-19 09:25] LABS: LYMPHOCYTES % (MANUAL) 20 % (19-48); MONOCYTES % (MANUAL) 5 % (3.4-9.0); MYELOCYTES % (MANUAL) 3 % (0-0); NEUTROPHILS % (MANUAL) 72 % (40-74); PLATELET ESTIMATE ADEQUATE; PLATELET MORPHOLOGY COMMENT NORMAL; RBC MORPHOLOGY COMMENT NORMAL
[2021-04-19 12:19] LABS: HEMATOCRIT 28.2 % (34.2-44.1); HEMOGLOBIN 9.1 g/dL (12.0-16.0)
[2021-04-19] MEDS: ENOXAPARIN SOD INJ 40 MG/0.4 ML SYR SC SCH (17:08)
[2021-04-20] VITALS (8 sets, daily range): BP systolic 96–121; BP diastolic 51–66
[2021-04-20] MEDS: MEROPENEM 500 MG in SODIUM CHLORIDE 0.9% 50ML 50 ML IV SCH ×4 (02:13→19:35)
[2021-04-20 06:27] LABS: ALBUMIN 1.9 g/dL (3.5-5.0); ALBUMIN/GLOBULIN RATIO 0.6 (0.8-2.0); ANION GAP 8.4 mmol/L (8-16); CALCIUM 7.6 mg/dL (8.4-10.2); CREATININE, SERUM 0.52 mg/dL (0.57-1.11); POTASSIUM 3.4 mmol/L (3.5-5.1)
[2021-04-20] MEDS: INSULIN LISPRO 100 UNIT/1 ML 3ML VIAL SQ SCH ×3 (07:30→16:30)
[2021-04-20] MEDS: ESCITALOPRAM OXALATE 10 MG TAB PO SCH (08:20)
[2021-04-20] MEDS: MULTIVITAMINS/MINERALS TAB PO SCH (08:20)
[2021-04-20 14:52] LABS: BODY FLUID APPEARANCE SL.CLOUDY; BODY FLUID COLOR STRAW; BODY FLUID TYPE PLEURAL; RBC,BODY FLUID 4000 cells/uL; WBC,BODY FLUID 130 cells/uL
[2021-04-20 17:06] LABS: LYMPHOCYTES,BODY FLUID 39 %; MONO/MACROPHG,BODY FLUID 55 %; NEUTROPHILS,BODY FLUID 5 %; OTHER CELLS,BODY FLUID 1 %
[2021-04-20] MEDS: ENOXAPARIN SOD INJ 40 MG/0.4 ML SYR SC SCH (17:16)
[2021-04-21] VITALS (8 sets, daily range): BP systolic 100–134; BP diastolic 51–61
[2021-04-21] MEDS: MEROPENEM 500 MG in SODIUM CHLORIDE 0.9% 50ML 50 ML IV SCH ×4 (01:48→20:21)
[2021-04-21 05:06] LABS: BASOPHILS % 0.6 % (0.0-1.0); EOSINOPHILS % 0.6 % (0.0-6.0); HEMATOCRIT 26.9 % (34.2-44.1); HEMOGLOBIN 8.6 g/dL (12.0-16.0); LYMPHOCYTES # (AUTO) 3.7 (1.0-3.2); LYMPHOCYTES % 53.3 % (18.0-39.1); MEAN CORPUSCULAR VOLUME 93.7 fL (81-99); MONOCYTES # (AUTO) 0.5 (0.2-0.8); MONOCYTES % 7.7 % (4.4-11.3); NEUTROPHILS # (AUTO) 2.5 (2.1-6.9); NEUTROPHILS % 36.2 % (38.7-80.0); PLATELET COUNT 198 x10e3/uL (140-360); RED BLOOD COUNT 2.87 x10e6/uL (3.6-5.1); RED CELL DISTRIBUTION WIDTH 13.9 % (11.7-14.4)
[2021-04-21 05:28] LABS: ANION GAP 10.7 mmol/L (8-16); CALCIUM 7.4 mg/dL (8.4-10.2); CREATININE, SERUM 0.54 mg/dL (0.57-1.11); POTASSIUM 3.7 mmol/L (3.5-5.1)
[2021-04-21 05:46] LABS: MAGNESIUM 1.8 MG/DL (1.3-2.1); PHOSPHORUS 2.2 MG/DL (2.3-4.7)
[2021-04-21] MEDS: INSULIN LISPRO 100 UNIT/1 ML 3ML VIAL SQ SCH ×3 (07:30→16:30)
[2021-04-21] MEDS: PANTOPRAZOLE SOD 40 MG TABEC PO SCH (08:00)
[2021-04-21] MEDS: MULTIVITAMINS/MINERALS TAB PO SCH (09:13)
[2021-04-21] MEDS: ESCITALOPRAM OXALATE 10 MG TAB PO SCH (09:13)
[2021-04-21] MEDS: PHOSPHORUS 250 MG TAB PO SCH ×2 (09:14→17:09)
[2021-04-21] MEDS: ENOXAPARIN SOD INJ 40 MG/0.4 ML SYR SC SCH (17:09)
[2021-04-22] MEDS: MEROPENEM 500 MG in SODIUM CHLORIDE 0.9% 50ML 50 ML IV SCH (01:30)
[2021-04-22 05:34] VITALS: BP 119/62
[2021-04-22 06:19] LABS: BASOPHILS % 0.4 % (0.0-1.0); EOSINOPHILS % 0.6 % (0.0-6.0); HEMATOCRIT 27.6 % (34.2-44.1); HEMOGLOBIN 8.8 g/dL (12.0-16.0); LYMPHOCYTES # (AUTO) 2.6 (1.0-3.2); LYMPHOCYTES % 52.5 % (18.0-39.1); MEAN CORPUSCULAR HGB CONC 31.9 g/dL (31-35); MEAN CORPUSCULAR VOLUME 94.2 fL (81-99); MONOCYTES # (AUTO) 0.5 (0.2-0.8); MONOCYTES % 9.1 % (4.4-11.3); NEUTROPHILS # (AUTO) 1.8 (2.1-6.9); NEUTROPHILS % 36.2 % (38.7-80.0); PLATELET COUNT 203 x10e3/uL (140-360); RED BLOOD COUNT 2.93 x10e6/uL (3.6-5.1); RED CELL DISTRIBUTION WIDTH 13.6 % (11.7-14.4)
[2021-04-22 07:22] LABS: ALBUMIN/GLOBULIN RATIO 0.6 (0.8-2.0); ANION GAP 10.6 mmol/L (8-16); CALCIUM 7.5 mg/dL (8.4-10.2); CREATININE, SERUM 0.49 mg/dL (0.57-1.11); POTASSIUM 3.6 mmol/L (3.5-5.1)
[2021-04-22] MEDS: PANTOPRAZOLE SOD 40 MG TABEC PO SCH (07:30)
[2021-04-22] MEDS: INSULIN LISPRO 100 UNIT/1 ML 3ML VIAL SQ SCH ×3 (07:30→16:30)
[2021-04-22 07:55] VITALS: BP 119/55
[2021-04-22 08:13] VITALS: BP 119/55
[2021-04-22] MEDS: MULTIVITAMINS/MINERALS TAB PO SCH (09:16)
[2021-04-22] MEDS: ESCITALOPRAM OXALATE 10 MG TAB PO SCH (09:16)
[2021-04-22 11:45] VITALS: BP 102/64
[2021-04-22 15:45] VITALS: BP 99/46
[2021-04-22] MEDS: ENOXAPARIN SOD INJ 40 MG/0.4 ML SYR SC SCH (16:54)
[2021-04-22 20:00] VITALS: BP 120/54
[2021-04-22] MEDS: MELATONIN 5 MG TABLET PO PRN (21:07)
[2021-04-23] VITALS (7 sets, daily range): BP systolic 99–129; BP diastolic 46–61
[2021-04-23 06:18] LABS: BASOPHILS % 0.2 % (0.0-1.0); EOSINOPHILS % 0.7 % (0.0-6.0); HEMATOCRIT 26.3 % (34.2-44.1); HEMOGLOBIN 8.8 g/dL (12.0-16.0); LYMPHOCYTES # (AUTO) 1.8 (1.0-3.2); LYMPHOCYTES % 43.1 % (18.0-39.1); MEAN CORPUSCULAR HGB CONC 33.5 g/dL (31-35); MEAN CORPUSCULAR VOLUME 92.6 fL (81-99); MONOCYTES # (AUTO) 0.5 (0.2-0.8); NEUTROPHILS # (AUTO) 1.9 (2.1-6.9); NEUTROPHILS % 44.5 % (38.7-80.0); PLATELET COUNT 226 x10e3/uL (140-360); RED BLOOD COUNT 2.84 x10e6/uL (3.6-5.1); RED CELL DISTRIBUTION WIDTH 13.3 % (11.7-14.4)
[2021-04-23 06:29] LABS: ANION GAP 9.7 mmol/L (8-16); CALCIUM 7.8 mg/dL (8.4-10.2); CREATININE, SERUM 0.49 mg/dL (0.57-1.11); POTASSIUM 3.7 mmol/L (3.5-5.1)
[2021-04-23] MEDS: INSULIN LISPRO 100 UNIT/1 ML 3ML VIAL SQ SCH ×3 (07:30→16:30)
[2021-04-23 07:52] LABS: LYMPHOCYTES % (MANUAL) 42 % (19-48); MONOCYTES % (MANUAL) 9 % (3.4-9.0); NEUTROPHILS % (MANUAL) 49 % (40-74)
[2021-04-23] MEDS: PANTOPRAZOLE SOD 40 MG TABEC PO SCH (08:00)
[2021-04-23] MEDS: MULTIVITAMINS/MINERALS TAB PO SCH (08:55)
[2021-04-23] MEDS: ESCITALOPRAM OXALATE 10 MG TAB PO SCH (08:55)
[2021-04-23] MEDS: ENOXAPARIN SOD INJ 40 MG/0.4 ML SYR SC SCH (17:39)
[2021-04-23] MEDS: MELATONIN 5 MG TABLET PO PRN (21:30)
[2021-04-23] MEDS: ACETAMINOPHEN 325 MG TAB PO PRN (21:31)
[2021-04-24] VITALS (8 sets, daily range): BP systolic 105–126; BP diastolic 56–73
[2021-04-24] MEDS: INSULIN LISPRO 100 UNIT/1 ML 3ML VIAL SQ SCH ×3 (07:21→16:01)
[2021-04-24] MEDS: MULTIVITAMINS/MINERALS TAB PO SCH (09:51)
[2021-04-24] MEDS: ESCITALOPRAM OXALATE 10 MG TAB PO SCH (09:51)
[2021-04-24] MEDS: PANTOPRAZOLE SOD 40 MG TABEC PO SCH (09:51)
[2021-04-24] MEDS: ENOXAPARIN SOD INJ 40 MG/0.4 ML SYR SC SCH (18:07)
[2021-04-24] MEDS: HYDROXYZINE HCL 10 MG TAB PO SCH (21:00)
[2021-04-24] MEDS: MELATONIN 5 MG TABLET PO PRN (21:45)
[2021-04-25] VITALS (8 sets, daily range): BP systolic 96–127; BP diastolic 52–64
[2021-04-25] MEDS: INSULIN LISPRO 100 UNIT/1 ML 3ML VIAL SQ SCH ×3 (07:30→16:30)
[2021-04-25] MEDS ORDERED: GUAIFENESIN 200 MG/10 ML UDC PO PRN (10:30)
[2021-04-25] MEDS ORDERED: BENZONATATE 100 MG CAP PO PRN (10:30)
[2021-04-25] MEDS: ALBUTEROL/IPRATROPIUM 3 ML NEB NEB SCH ×3 (11:10→20:30)
[2021-04-25] MEDS: ESCITALOPRAM OXALATE 10 MG TAB PO SCH (11:29)
[2021-04-25] MEDS: MULTIVITAMINS/MINERALS TAB PO SCH (11:29)
[2021-04-25] MEDS: PANTOPRAZOLE SOD 40 MG TABEC PO SCH (11:29)
[2021-04-25] MEDS: ENOXAPARIN SOD INJ 40 MG/0.4 ML SYR SC SCH (17:45)
[2021-04-25] MEDS: HYDROXYZINE HCL 10 MG TAB PO SCH (21:26)
[2021-04-26 00:34] VITALS: BP 110/54
[2021-04-26] MEDS: ALBUTEROL/IPRATROPIUM 3 ML NEB NEB SCH ×4 (02:10→19:30)
[2021-04-26 05:46] LABS: BASOPHILS % 0.7 % (0.0-1.0); HEMATOCRIT 26.5 % (34.2-44.1); HEMOGLOBIN 8.5 g/dL (12.0-16.0); LYMPHOCYTES # (AUTO) 2.3 (1.0-3.2); LYMPHOCYTES % 56.1 % (18.0-39.1); MEAN CORPUSCULAR HEMOGLOBIN 29.9 pg (28-32); MEAN CORPUSCULAR HGB CONC 32.1 g/dL (31-35); MEAN CORPUSCULAR VOLUME 93.3 fL (81-99); MONOCYTES # (AUTO) 0.6 (0.2-0.8); MONOCYTES % 14.9 % (4.4-11.3); NEUTROPHILS # (AUTO) 1.1 (2.1-6.9); NEUTROPHILS % 26.8 % (38.7-80.0); PLATELET COUNT 269 x10e3/uL (140-360); RED BLOOD COUNT 2.84 x10e6/uL (3.6-5.1); RED CELL DISTRIBUTION WIDTH 13.7 % (11.7-14.4)
[2021-04-26 06:38] LABS: ALBUMIN 2.5 g/dL (3.5-5.0); ALBUMIN/GLOBULIN RATIO 0.6 (0.8-2.0); CALCIUM 8.2 mg/dL (8.4-10.2); CREATININE, SERUM 0.57 mg/dL (0.57-1.11)
[2021-04-26] MEDS: INSULIN LISPRO 100 UNIT/1 ML 3ML VIAL SQ SCH ×3 (07:30→16:30)
[2021-04-26] MEDS: PANTOPRAZOLE SOD 40 MG TABEC PO SCH (08:00)
[2021-04-26 08:04] VITALS: BP 94/47
[2021-04-26] MEDS: ESCITALOPRAM OXALATE 10 MG TAB PO SCH (09:11)
[2021-04-26] MEDS: MULTIVITAMINS/MINERALS TAB PO SCH (09:11)
[2021-04-26 09:33] LABS: LYMPHOCYTES % (MANUAL) 49 % (19-48); METAMYELOCYTES % (MANUAL) 2 % (0-0); MONOCYTES % (MANUAL) 4 % (3.4-9.0); MYELOCYTES % (MANUAL) 1 % (0-0); NEUTROPHILS % (MANUAL) 39 % (40-74)
[2021-04-26 09:34] LABS: PLATELET ESTIMATE ADEQUATE; PLATELET MORPHOLOGY COMMENT NORMAL; RBC MORPHOLOGY COMMENT NORMAL; SMUDGE CELLS FEW
[2021-04-26 11:30] VITALS: BP 98/54
[2021-04-26] MEDS ORDERED: ONDANSETRON HCL 4 MG ORAL DISINTEGRATING TAB PO PRN (14:45)
[2021-04-26 16:19] VITALS: BP 115/53
[2021-04-26 19:54] VITALS: BP 95/56
== END 2021-04-26 20:00 | DRG 871 ==
LOC: ER 22:39 → ERHOLD 04-12 03:32 → ICU 04-12 09:15 → MED/SURG 04-19 15:32
PROVIDERS: ADMIT Internal Medicine; ATTEND Internal Medicine
PROC: 0W993ZX Drainage of Right Pleural Cavity, Percutaneous Approach, Diagnostic (ICD-10-PCS; principal; 2021-04-20)
DX: A41.9 Sepsis, unspecified organism (principal); R65.21 Severe sepsis with septic shock; J18.9 Pneumonia, unspecified organism; N17.9 Acute kidney failure, unspecified; E87.2 Acidosis; N12 Tubulo-interstitial nephritis, not specified as acute or chronic; E87.1 Hypo-osmolality and hyponatremia; J90 Pleural effusion, not elsewhere classified; D69.6 Thrombocytopenia, unspecified; E83.51 Hypocalcemia; D64.9 Anemia, unspecified; K76.0 Fatty (change of) liver, not elsewhere classified; I48.91 Unspecified atrial fibrillation; Z79.01 Long term (current) use of anticoagulants; R19.7 Diarrhea, unspecified; K21.9 Gastro-esophageal reflux disease without esophagitis
CPT/HCPCS: 32555; 36415; 71045; 71046; 71260; 74176; 74470; 76604; 76700; 76705; 80048; 80053; 81001; 82040; 82140; 82150; 82248; 82270; 82533; 82550; 82553; 82607; 82728; 82746; 82945; 82948; 83036; 83540; 83605; 83615; 83690; 83735; 84100; 84132; 84155; 84157; 84300; 84443; 84466; 84484; 85014; 85018; 85025; 85045; 85049; 85379; 85384; 85610; 85730; 87040; 87070; 87086; 87177; 87205; 87328; 87493; 89051; 93005; 93306; 93970; 96367; 96372; 97139; 99285; J0610; J0692; J1160; J1650; J1720; J1940; J2185; J2270; J2370; J2405; J2543; J3010; J3370; J3410; J3480; J7030; J7040; J7050; J7070; Q9967

== ENCOUNTER → 2021-05-24 | Outpatient (CLI) | payer MEDICARE ==
[~2021-05-24] MED LIST: DOXEPIN HCL10 MG PO; ESCITALOPRAM OX10 MG PO; HYDROXYZINE HCL10 MG PO; NITROFURANTOIN100 M1 PO; TRAZODONE HCL50 MG PO
== END ==
LOC: RAD 12:31
PROVIDERS: ATTEND Family Medicine
DX: R07.89 Other chest pain (principal)
CPT/HCPCS: 71046

== ENCOUNTER → 2023-01-15 | Day surgery (SDC) | payer MEDICARE ==
[2023-01-11 13:09] LABS: BASOPHILS % 0.5 % (0.0-1.0); EOSINOPHILS # (AUTO) 0.1 (0.0-0.4); EOSINOPHILS % 1.3 % (0.0-6.0); HEMATOCRIT 37.9 % (34.2-44.1); LYMPHOCYTES # (AUTO) 2.4 (1.0-3.2); LYMPHOCYTES % 39.8 % (18.0-39.1); MEAN CORPUSCULAR HEMOGLOBIN 30.1 pg (28-32); MEAN CORPUSCULAR HGB CONC 31.7 g/dL (31-35); MONOCYTES # (AUTO) 0.5 (0.2-0.8); MONOCYTES % 7.6 % (4.4-11.3); NEUTROPHILS % 50.6 % (38.7-80.0); PLATELET COUNT 201 x10e3/uL (140-360); RED BLOOD COUNT 3.99 x10e6/uL (3.6-5.1); RED CELL DISTRIBUTION WIDTH 11.7 % (11.7-14.4)
[~2023-01-15] MED LIST changes: +BIOTIN1 MG; +CRESTOR10 MG PO; +ELDERBERRY350 MG; +GABAPENTIN600 MG PO; +GLYCOPYRROLATE INJ 0.2 MG/ML VIAL ONE; +LACTATED RINGER'S 1,000 ML ONE; +LIDOCAINE HCL 2% LOCAL INJ 5 ML SDV VIAL INJ ONE; +MELATONIN3 MG PO; +POVIDONE IODINE 0.05% 0.05 % ML PO ONE; +PROPOFOL IV EMULSION 10 MG/ML 20 ML VIAL ONE; +VITAMIN B; +VITAMIN C1000 MG PO
[2023-01-15 14:45] VITALS: BP 114/54
== END | disposition home or self-care (01) ==
LOC: OR 10:51
PROVIDERS: ATTEND Internal Medicine Gastroenterology
DX: Z12.11 Encounter for screening for malignant neoplasm of colon (principal); K31.7 Polyp of stomach and duodenum; K29.50 Unspecified chronic gastritis without bleeding; K21.9 Gastro-esophageal reflux disease without esophagitis; K57.30 Diverticulosis of large intestine without perforation or abscess without bleeding; K59.00 Constipation, unspecified; K44.9 Diaphragmatic hernia without obstruction or gangrene; K62.5 Hemorrhage of anus and rectum; K64.8 Other hemorrhoids; Z01.810 Encounter for preprocedural cardiovascular examination; Z01.812 Encounter for preprocedural laboratory examination; Z79.899 Other long term (current) drug therapy; Z80.0 Family history of malignant neoplasm of digestive organs
CPT/HCPCS: 43239; G0121; 36415; 45378; 85025; 88304; 88305; 88312; 88342; 93005; J2001

== ENCOUNTER → 2024-06-19 | Outpatient (REF) | payer MEDICARE ==
[~2024-06-19] MED LIST changes: -GLYCOPYRROLATE INJ 0.2 MG/ML VIAL ONE; -LACTATED RINGER'S 1,000 ML ONE; -LIDOCAINE HCL 2% LOCAL INJ 5 ML SDV VIAL INJ ONE; -POVIDONE IODINE 0.05% 0.05 % ML PO ONE; -PROPOFOL IV EMULSION 10 MG/ML 20 ML VIAL ONE
== END ==
LOC: MAMMO 10:39
PROVIDERS: ATTEND Nurse Practitioner Gerontology
DX: Z12.31 Encounter for screening mammogram for malignant neoplasm of breast (principal)
CPT/HCPCS: 77067